=== PATIENT | female | born 1965 | race Caucasian/White ===

== ENCOUNTER 2025-04-01 12:30 | Emergency (ER) | payer BC ==
[2025-04-01] MEDS ORDERED: Ibuprofen 200 MG TAB ONE (13:42)
== END 2025-04-01 13:53 | disposition home or self-care (01) ==
LOC: CSHERS 12:30
DX: S82.892G Other fracture of left lower leg, subsequent encounter for closed fracture with delayed healing (principal); W19.XXXD Unspecified fall, subsequent encounter
CPT/HCPCS: 99283